=== PATIENT | female | born 1970 | race Caucasian/White ===

== ENCOUNTER 2017-01-30 09:10 | Emergency (ER) | payer OTHER ==
[~2017-01-30] VITALS: Ht 157.5 cm; Wt 65.9 kg
[~2017-01-30 09:10] MED LIST: ASPI-825 PO; GEMF600T3 PO; METF1000 PO
[2017-01-30] MEDS ORDERED: MECL-111 PO (09:23)
[2017-01-30 09:31] LABS: GLUCOSE,POINT OF CARE 314 MG/DL (70-110)
[2017-01-30 11:02] LABS: BASOPHILS # (AUTO) 0.04 K/uL (0.00-0.20); BASOPHILS % (AUTO) 0.4 % (0.0-2.0); EOSINOPHILS # (AUTO) 0.49 K/uL (0.00-0.70); EOSINOPHILS % (AUTO) 5.58 % (1.0-6.0); HEMATOCRIT 39.6 % (36-46); HEMOGLOBIN 13.1 g/dL (12.0-16.0); LYMPHOCYTES # (AUTO) 3.2 K/uL (1.0-4.8); LYMPHOCYTES % (AUTO) 36.7 % (22.0-44.0); MEAN CORPUSCULAR HEMOGLOBIN 28.8 pg (26.0-34.0); MEAN CORPUSCULAR HGB CONC 33.1 G/dL (31.0-37.0); MEAN CORPUSCULAR VOLUME 87 fL (80-100); MONOCYTES # (AUTO) 0.5 K/uL (0.1-1.0); MONOCYTES % (AUTO) 5.4 % (2.0-9.0); NEUTROPHILS # (AUTO) 4.5 K/uL (1.8-7.7); NEUTROPHILS % (AUTO) 51.9 % (40.0-70.0); PLATELET COUNT (AUTO) 228 K/uL (150-450); RED BLOOD CELL COUNT(AUTO) 4.55 MIL/uL (4.00-5.20); RED CELL DISTRIBUTION WIDTH 12.9 % (11.5-14.5); WHITE BLOOD COUNT (AUTO) 8.7 K/uL (4.5-11.0)
[2017-01-30 11:21] LABS: ALANINE AMINOTRANSFERASE 18 U/L (12-78); ALBUMIN 3.4 g/dL (3.4-5.0); ANION GAP 8 mmol/L (8-16); ASPARTATE AMINOTRANSFERASE 10 U/L (15-37); BILIRUBIN,TOTAL 0.3 mg/dL (0.1-1.0); CALCIUM, TOTAL 8.5 mg/dL (8.8-10.5); CARBON DIOXIDE 26 mmol/L (22-29); CHLORIDE 98 mmol/L (98-107); CREATININE 0.64 mg/dL (0.60-1.30); GLOMERULAR FILTR. RATE CALC > 60 mL/min (>60); POTASSIUM 4.4 mmol/L (3.5-5.1); SODIUM SERUM 132 mmol/L (136-145); TOTAL PROTEIN, SERUM 6.9 g/dL (6.4-8.2); UREA NITROGEN, BLOOD 9 mg/dL (7-18)
[2017-01-30] MEDS ORDERED: INSULIN REGULAR, HUMAN 100 UNITS/ML SQ ONE (12:00)
[2017-01-30] MEDS ORDERED: KETOROLAC TROMETHAMINE 30 MG/ML VIAL IVP ONE (12:00)
[2017-01-30] MEDS ORDERED: SODIUM CHLORIDE 0.9% 1,000 ML IV ONE (12:00)
[2017-01-30] MEDS ORDERED: MECLIZINE HCL 25 MG TABLET PO ONE (12:00)
[2017-01-30 14:08] LABS: APPEARANCE,URINE CLEAR (CLEAR); GLUCOSE, URINE (UA) >=1000 mg/dL (NEGATIVE); KETONES,URINE NEGATIVE (NEGATIVE); LEUKOCYTE ESTERASE ,URINE NEGATIVE (NEGATIVE); OCCULT BLOOD,URINE NEGATIVE (NEGATIVE); PROTEIN,URINE NEGATIVE (NEGATIVE)
[2017-01-30 14:09] LABS: ADD UA MICROSCOPIC YES
[2017-01-30 14:14] VITALS: BP 135/80
[2017-01-30 14:17] LABS: RBC,URINE None Seen /HPF (0-2); SQUAMOUS EPITHELIAL CELL,UR Few /LPF (None Seen); WBC,URINE 0-2 /HPF (0-5)
[2017-01-30 14:42] LABS: GLUCOSE COMMENT 1 Doctor Notified; GLUCOSE,POINT OF CARE 176 MG/DL (70-110)
== END 2017-01-30 14:53 | disposition home or self-care (01) ==
LOC: EMS 09:11
DX: R42 Dizziness and giddiness (principal); M54.41 Lumbago with sciatica, right side; M54.42 Lumbago with sciatica, left side; I10 Essential (primary) hypertension; E11.9 Type 2 diabetes mellitus without complications; E78.00 Pure hypercholesterolemia, unspecified; F17.210 Nicotine dependence, cigarettes, uncomplicated
CPT/HCPCS: 36415; 72100; 80053; 81001; 82962; 85025; 96361; 96372; 96374; 99285; J1815; J1885; J7030

== ENCOUNTER 2017-10-22 01:01 | Emergency (ER) | payer OTHER ==
[~2017-10-22] VITALS: Ht 157.5 cm; Wt 63.2 kg
[~2017-10-22 01:01] MED LIST changes: +MECL-111 PO
[2017-10-22] MEDS ORDERED: LORA10TA7 PO (01:23)
[2017-10-22] MEDS ORDERED: INSLAN SQ (01:23)
[2017-10-22] MEDS ORDERED: GLIP5 PO (01:23)
[2017-10-22] MEDS ORDERED: SIMV-261 PO (01:23)
[2017-10-22 01:28] LABS: GLUCOSE,POINT OF CARE 325 MG/DL (70-110)
[2017-10-22 02:14] VITALS: BP 129/76
== END 2017-10-22 02:32 | disposition home or self-care (01) ==
LOC: EMS 01:01
DX: S46.001A Unspecified injury of muscle(s) and tendon(s) of the rotator cuff of right shoulder, initial encounter (principal); M54.2 Cervicalgia; E11.9 Type 2 diabetes mellitus without complications; E78.00 Pure hypercholesterolemia, unspecified; I10 Essential (primary) hypertension; F17.210 Nicotine dependence, cigarettes, uncomplicated; Z76.0 Encounter for issue of repeat prescription; Z79.4 Long term (current) use of insulin; Z91.040 Latex allergy status; X58.XXXA Exposure to other specified factors, initial encounter; Y93.89 Activity, other specified; Y92.89 Other specified places as the place of occurrence of the external cause; Y99.8 Other external cause status
CPT/HCPCS: 99283

== ENCOUNTER 2018-10-25 17:27 | Emergency (ER) | payer OTHER ==
[~2018-10-25] VITALS: Ht 152.4 cm; Wt 59.5 kg
[~2018-10-25 17:27] MED LIST changes: -ASPI-825 PO; -GEMF600T3 PO; +GLIP5 PO; +INSLAN SQ; +LORA10TA7 PO; +SIMV-261 PO
[2018-10-25] MEDS ORDERED: SIMV-260 PO (17:41)
[2018-10-25] MEDS ORDERED: CYCL10 PO (17:41)
[2018-10-25] MEDS ORDERED: CETI10TA59 PO (17:41)
[2018-10-25] MEDS ORDERED: MIRT30 PO (17:41)
[2018-10-25] MEDS ORDERED: OMEP20 PO (17:41)
[2018-10-25 17:44] LABS: GLUCOSE,POINT OF CARE 294 MG/DL (70-110)
[2018-10-25 20:19] LABS: GLUCOSE,POINT OF CARE 179 MG/DL (70-110)
[2018-10-25 20:37] VITALS: BP 126/73
== END 2018-10-25 20:52 | disposition home or self-care (01) ==
LOC: EMS 17:30
DX: E11.65 Type 2 diabetes mellitus with hyperglycemia (principal); I10 Essential (primary) hypertension; E78.00 Pure hypercholesterolemia, unspecified; F17.210 Nicotine dependence, cigarettes, uncomplicated; Z91.040 Latex allergy status; Z79.84 Long term (current) use of oral hypoglycemic drugs; Z79.899 Other long term (current) drug therapy
CPT/HCPCS: 99406

== ENCOUNTER 2019-01-07 17:02 | Emergency (ER) | payer OTHER ==
[~2019-01-07] VITALS: Ht 157.5 cm; Wt 58.6 kg
[~2019-01-07 17:02] MED LIST changes: +CETI10TA59 PO; +CYCL10 PO; -LORA10TA7 PO; +MIRT30 PO; +OMEP20 PO; +SIMV-260 PO; -SIMV-261 PO
[2019-01-07 17:21] LABS: GLUCOSE,POINT OF CARE 243 MG/DL (70-110)
[2019-01-07] MEDS ORDERED: GLIP10 PO (17:21)
[2019-01-07] MEDS ORDERED: INSLAN SQ (17:21)
[2019-01-07] MEDS ORDERED: KETOROLAC TROMETHAMINE 30 MG/ML VIAL IM ONE (20:00)
[2019-01-07 21:30] VITALS: BP 128/75
== END 2019-01-07 21:32 | disposition home or self-care (01) ==
LOC: EMS 17:03
DX: J32.9 Chronic sinusitis, unspecified (principal); R51 Headache; E11.9 Type 2 diabetes mellitus without complications; E78.00 Pure hypercholesterolemia, unspecified; I10 Essential (primary) hypertension; F17.210 Nicotine dependence, cigarettes, uncomplicated; Z91.040 Latex allergy status; Z79.84 Long term (current) use of oral hypoglycemic drugs; Z79.4 Long term (current) use of insulin
CPT/HCPCS: 71045; 82962; 96372; 99283; J1885

== ENCOUNTER 2019-03-16 05:10 | Emergency (ER) | payer OTHER ==
[~2019-03-16] VITALS: Ht 157.5 cm; Wt 58.2 kg
[~2019-03-16 05:10] MED LIST changes: -CYCL10 PO; +GLIP10 PO; -GLIP5 PO
[2019-03-16 07:09] LABS: BASOPHILS % (AUTO) 0.7 % (0.0-2.0); EOSINOPHILS % (AUTO) 1.9 % (1.0-6.0); HEMATOCRIT 37.5 % (36-46); LYMPHOCYTES # (AUTO) 2.3 K/uL (1.0-4.8); LYMPHOCYTES % (AUTO) 23.4 % (22.0-44.0); MEAN CORPUSCULAR HEMOGLOBIN 28.7 pg (26.0-34.0); MEAN CORPUSCULAR HGB CONC 34.7 G/dL (31.0-37.0); MEAN CORPUSCULAR VOLUME 83 fL (80-100); MONOCYTES # (AUTO) 0.6 K/uL (0.1-1.0); MONOCYTES % (AUTO) 5.7 % (2.0-9.0); NEUTROPHILS # (AUTO) 6.8 K/uL (1.8-7.7); NEUTROPHILS % (AUTO) 68.3 % (40.0-70.0); PLATELET COUNT (AUTO) 258 K/uL (150-450); RED BLOOD CELL COUNT(AUTO) 4.53 MIL/uL (4.00-5.20); RED CELL DISTRIBUTION WIDTH 14.3 % (11.5-14.5)
[2019-03-16] MEDS ORDERED: MECLIZINE HCL 25 MG TABLET PO ONE (07:15)
[2019-03-16] MEDS ORDERED: SODIUM CHLORIDE 0.9% 2,000 ML IV ONE (07:15)
[2019-03-16] MEDS ORDERED: ACETAMINOPHEN 500 MG TABLET PO ONE (07:15)
[2019-03-16] MEDS ORDERED: INSULIN REGULAR, HUMAN 100 UNITS/ML IVP ONE (07:15)
[2019-03-16] MEDS ORDERED: ONDANSETRON HCL 4 MG/2 ML VIAL IVP ONE (07:15)
[2019-03-16 07:25] LABS: ANION GAP 8 mmol/L (8-16); CALCIUM, TOTAL 8.7 mg/dL (8.8-10.5); CARBON DIOXIDE 27 mmol/L (22-29); CHLORIDE 97 mmol/L (98-107); CREATININE 0.62 mg/dL (0.60-1.30); GLOMERULAR FILTR. RATE CALC > 60 mL/min (>60); GLUCOSE,RANDOM 319 mg/dL (70-110); POTASSIUM 3.6 mmol/L (3.5-5.1); SODIUM SERUM 132 mmol/L (136-145); UREA NITROGEN, BLOOD 8 mg/dL (7-18)
[2019-03-16 07:34] LABS: ALANINE AMINOTRANSFERASE 26 U/L (12-78); ALBUMIN 3.5 g/dL (3.4-5.0); ALKALINE PHOSPHATASE 86 U/L (46-116); ASPARTATE AMINOTRANSFERASE 16 U/L (15-37); BILIRUBIN,TOTAL 0.2 mg/dL (0.1-1.0); HCG,QUANTITATIVE 1 mIU/mL (0-6); LIPASE 178 U/L (73-393); TOTAL PROTEIN, SERUM 7.4 g/dL (6.4-8.2)
[2019-03-16 08:53] LABS: GLUCOSE,POINT OF CARE 263 MG/DL (70-110)
[2019-03-16 09:47] VITALS: BP 135/76
== END 2019-03-16 09:58 | disposition home or self-care (01) ==
LOC: EMS 05:13
DX: E11.65 Type 2 diabetes mellitus with hyperglycemia (principal); R42 Dizziness and giddiness; E11.9 Type 2 diabetes mellitus without complications; E78.00 Pure hypercholesterolemia, unspecified; I10 Essential (primary) hypertension; F17.210 Nicotine dependence, cigarettes, uncomplicated; Z79.899 Other long term (current) drug therapy; Z91.040 Latex allergy status; Z79.4 Long term (current) use of insulin
CPT/HCPCS: 36415; 80053; 82962; 83690; 84484; 84702; 85025; 93005; 96361; 96374; 96375; 99285; J1815; J2405; J7030

== ENCOUNTER 2020-10-02 17:43 | Emergency (ER) | payer OTHER ==
[~2020-10-02] VITALS: Ht 154.9 cm; Wt 56.8 kg
[~2020-10-02 17:43] MED LIST changes: +CETI-450 PO; -CETI10TA59 PO; -MECL-111 PO; +MECL-160 PO
[2020-10-02] MEDS ORDERED: MAGN200T4 PO (17:50)
[2020-10-02 18:53] LABS: BAND NEUTROPHILS % (MANUAL) 0 % (0-5)
[2020-10-02 18:54] LABS: HEMOGLOBIN 12.8 g/dL (12.0-16.0); MEAN CORPUSCULAR HEMOGLOBIN 29.2 pg (26.0-34.0); MEAN CORPUSCULAR HGB CONC 33.6 G/dL (31.0-37.0); MEAN CORPUSCULAR VOLUME 87 fL (80-100); PLATELET COUNT (AUTO) 241 K/uL (150-450); RED BLOOD CELL COUNT(AUTO) 4.37 MIL/uL (4.00-5.20); RED CELL DISTRIBUTION WIDTH 13.1 % (11.5-14.5)
[2020-10-02 19:04] LABS: ANION GAP 5 mmol/L (8-16); CALCIUM, TOTAL 9.3 mg/dL (8.8-10.5); CARBON DIOXIDE 30 mmol/L (22-29); CHLORIDE 99 mmol/L (98-107); CREATININE 0.75 mg/dL (0.60-1.30); GLOMERULAR FILTR. RATE CALC > 60 mL/min (>60); GLUCOSE,RANDOM 393 mg/dL (70-110); SODIUM SERUM 134 mmol/L (136-145); UREA NITROGEN, BLOOD 11 mg/dL (7-18)
[2020-10-02 19:08] LABS: EOSINOPHILS % (MANUAL) 4 % (1-6); LYMPHOCYTES % (MANUAL) 30 % (22-44); MONOCYTES % (MANUAL) 1 % (2-9); SEGMENTED NEUTROPHILS % 65 % (40-70)
[2020-10-02 19:10] LABS: ALANINE AMINOTRANSFERASE 43 U/L (12-78); ALBUMIN 3.5 g/dL (3.4-5.0); ALKALINE PHOSPHATASE 103 U/L (46-116); ASPARTATE AMINOTRANSFERASE 23 U/L (15-37); BILIRUBIN,TOTAL 0.4 mg/dL (0.1-1.0); TOTAL PROTEIN, SERUM 7.5 g/dL (6.4-8.2)
[2020-10-02 19:11] VITALS: BP 119/62
[2020-10-02] MEDS ORDERED: METF-960 PO (19:42)
[2020-10-02] MEDS ORDERED: VITA1CAP PO (19:42)
[2020-10-02] MEDS ORDERED: ATOR20TA65 PO (19:42)
[2020-10-02] MEDS ORDERED: MECL-226 PO (19:42)
[2020-10-02] MEDS ORDERED: DULA0.75 SQ (19:42)
[2020-10-02] MEDS ORDERED: SITA100 PO (19:42)
[2020-10-02] MEDS ORDERED: MAGNESIUM SULFATE 2 GM/WATER 50 ML IV ONE (19:45)
== END 2020-10-02 20:47 | disposition home or self-care (01) ==
LOC: EMS 17:43
DX: E83.42 Hypomagnesemia (principal); E11.9 Type 2 diabetes mellitus without complications; E78.00 Pure hypercholesterolemia, unspecified; I10 Essential (primary) hypertension; F17.210 Nicotine dependence, cigarettes, uncomplicated; Z79.4 Long term (current) use of insulin; Z91.040 Latex allergy status
CPT/HCPCS: 36415; 80053; 82962; 83735; 85007; 85027; 96365; 99284; J3475

== ENCOUNTER 2020-12-10 14:03 | Emergency (ER) | payer OTHER ==
[~2020-12-10] VITALS: Ht 157.5 cm; Wt 57.3 kg
[~2020-12-10 14:03] MED LIST changes: +ATOR20TA65 PO; +DULA0.75 SQ; +MAGN200T4 PO; -MECL-160 PO; +MECL-226 PO; +METF-960 PO; -METF1000 PO; -SIMV-260 PO; +SITA100 PO; +VITA1CAP PO
[2020-12-10 14:05] VITALS: BP 118/59
[2020-12-10 16:15] LABS: GLUCOMETER DEV NAME(LOC) ERT.5; GLUCOSE,POINT OF CARE 296 MG/DL (70-110)
[2020-12-10 16:36] LABS: APPEARANCE,URINE CLOUDY (CLEAR); GLUCOSE, URINE (UA) 500 mg/dL (NEGATIVE); KETONES,URINE TRACE mg/dL (NEGATIVE); LEUKOCYTE ESTERASE ,URINE LARGE (NEGATIVE); NITRATE,URINE NEGATIVE (NEGATIVE); OCCULT BLOOD,URINE MODERATE (NEGATIVE); PROTEIN,URINE POS 1+ (NEGATIVE); UROBILINOGEN,URINE 0.2 mg/dL (<=1.0)
[2020-12-10 16:39] LABS: BILIRUBIN,URINE PRELIM. POSITIVE (NEGATIVE)
[2020-12-10 17:19] LABS: BACTERIA,URINE Few /HPF (None Seen)
[2020-12-10 17:20] LABS: WBC,URINE 51-100 /HPF (0-5)
[2020-12-10 17:21] LABS: SQUAMOUS EPITHELIAL CELL,UR Few /LPF (None Seen)
[2020-12-10 17:25] LABS: CALCIUM, TOTAL 9.1 mg/dL (8.8-10.5); CREATININE 1.22 mg/dL (0.60-1.30)
[2020-12-10 17:26] LABS: MAGNESIUM 1.4 mg/dL (1.80-2.40)
== END 2020-12-10 17:44 | disposition home or self-care (01) ==
LOC: EMS 14:06
DX: E83.42 Hypomagnesemia (principal); N39.0 Urinary tract infection, site not specified; E11.9 Type 2 diabetes mellitus without complications; E78.00 Pure hypercholesterolemia, unspecified; I10 Essential (primary) hypertension; F17.210 Nicotine dependence, cigarettes, uncomplicated; Z90.89 Acquired absence of other organs; Z91.040 Latex allergy status; Z79.4 Long term (current) use of insulin
CPT/HCPCS: 80048; 81001; 81002; 82948; 82962; 83735; 87077; 87086; 87186; 93005; 99284

== ENCOUNTER 2020-12-19 13:07 | Emergency (ER) | payer OTHER ==
[2020-12-19] MEDS ORDERED: ACETAMINOPHEN 500 MG TABLET PO ONE (14:30)
[2020-12-19] MEDS ORDERED: IBUPROFEN 600 MG TABLET PO ONE (14:30)
== END 2020-12-19 16:34 | disposition home or self-care (01) ==
LOC: EMS 13:07
DX: S83.92XA Sprain of unspecified site of left knee, initial encounter (principal); E11.9 Type 2 diabetes mellitus without complications; E78.00 Pure hypercholesterolemia, unspecified; I10 Essential (primary) hypertension; F17.210 Nicotine dependence, cigarettes, uncomplicated; Z90.89 Acquired absence of other organs; Z91.040 Latex allergy status; Z79.84 Long term (current) use of oral hypoglycemic drugs; W19.XXXA Unspecified fall, initial encounter; Y93.89 Activity, other specified; Y92.89 Other specified places as the place of occurrence of the external cause; Y99.8 Other external cause status
CPT/HCPCS: 99283

== ENCOUNTER 2021-03-08 03:25 | Emergency (ER) | payer OTHER ==
[~2021-03-08] VITALS: Ht 154.9 cm; Wt 58.1 kg
[~2021-03-08 03:25] MED LIST changes: +METF-1211 PO; -METF-960 PO
[2021-03-08 03:42] LABS: GLUCOSE,POINT OF CARE 228 MG/DL (70-110)
[2021-03-08 04:21] LABS: BASOPHILS % (AUTO) 0.7 % (0.0-2.0); EOSINOPHILS % (AUTO) 6.7 % (1.0-6.0); HEMATOCRIT 35.1 % (36-46); HEMOGLOBIN 12.1 g/dL (12.0-16.0); LYMPHOCYTES # (AUTO) 4.4 K/uL (1.0-4.8); LYMPHOCYTES % (AUTO) 45.3 % (22.0-44.0); MEAN CORPUSCULAR HEMOGLOBIN 30.5 pg (26.0-34.0); MEAN CORPUSCULAR HGB CONC 34.3 G/dL (31.0-37.0); MEAN CORPUSCULAR VOLUME 89 fL (80-100); MONOCYTES # (AUTO) 0.7 K/uL (0.1-1.0); MONOCYTES % (AUTO) 7.6 % (2.0-9.0); NEUTROPHILS # (AUTO) 3.9 K/uL (1.8-7.7); NEUTROPHILS % (AUTO) 39.7 % (40.0-70.0); PLATELET COUNT (AUTO) 224 K/uL (150-450); RED BLOOD CELL COUNT(AUTO) 3.96 MIL/uL (4.00-5.20)
[2021-03-08 04:31] LABS: ANION GAP 6 mmol/L (8-16); CALCIUM, TOTAL 9.1 mg/dL (8.8-10.5); CARBON DIOXIDE 30 mmol/L (22-29); CHLORIDE 103 mmol/L (98-107); CREATININE 0.78 mg/dL (0.60-1.30); GLOMERULAR FILTR. RATE CALC > 60 mL/min (>60); GLUCOSE,RANDOM 171 mg/dL (70-110); SODIUM SERUM 139 mmol/L (136-145); UREA NITROGEN, BLOOD 27 mg/dL (7-18)
[2021-03-08 04:35] LABS: ALANINE AMINOTRANSFERASE 25 U/L (12-78); ALBUMIN 3.5 g/dL (3.4-5.0); ALKALINE PHOSPHATASE 93 U/L (46-116); ASPARTATE AMINOTRANSFERASE 14 U/L (15-37); BILIRUBIN,TOTAL 0.2 mg/dL (0.1-1.0); LIPASE 474 U/L (73-393)
[2021-03-08] MEDS ORDERED: MAGNESIUM SULFATE 2 GM/WATER 50 ML IV ONE (06:00)
[2021-03-08 10:20] VITALS: BP 110/62
== END 2021-03-08 11:25 | disposition home or self-care (01) ==
LOC: EMS 03:28
DX: E83.42 Hypomagnesemia (principal); R07.89 Other chest pain; I10 Essential (primary) hypertension; E78.00 Pure hypercholesterolemia, unspecified; E11.9 Type 2 diabetes mellitus without complications; F32.9 Major depressive disorder, single episode, unspecified; F41.9 Anxiety disorder, unspecified; F17.210 Nicotine dependence, cigarettes, uncomplicated; Z91.038 Other insect allergy status; Z79.84 Long term (current) use of oral hypoglycemic drugs; Z79.4 Long term (current) use of insulin; Z79.899 Other long term (current) drug therapy
CPT/HCPCS: 36415; 71045; 80053; 82962; 83690; 83735; 84484; 85025; 93005; 96365; 96366; 99285; J3475

== ENCOUNTER 2021-05-30 21:13 | Emergency (ER) | payer OTHER ==
[~2021-05-30] VITALS: Ht 154.9 cm; Wt 56.8 kg
[2021-05-30 21:38] LABS: BASOPHILS % (AUTO) 0.5 % (0.0-2.0); EOSINOPHILS % (AUTO) 5.9 % (1.0-6.0); HEMATOCRIT 36.6 % (36-46); HEMOGLOBIN 12.5 g/dL (12.0-16.0); LYMPHOCYTES # (AUTO) 3.4 K/uL (1.0-4.8); LYMPHOCYTES % (AUTO) 36.7 % (22.0-44.0); MEAN CORPUSCULAR HEMOGLOBIN 29.4 pg (26.0-34.0); MEAN CORPUSCULAR HGB CONC 34.2 G/dL (31.0-37.0); MEAN CORPUSCULAR VOLUME 86 fL (80-100); MONOCYTES # (AUTO) 0.6 K/uL (0.1-1.0); MONOCYTES % (AUTO) 6.5 % (2.0-9.0); NEUTROPHILS # (AUTO) 4.7 K/uL (1.8-7.7); NEUTROPHILS % (AUTO) 50.4 % (40.0-70.0); PLATELET COUNT (AUTO) 271 K/uL (150-450); RED BLOOD CELL COUNT(AUTO) 4.25 MIL/uL (4.00-5.20); RED CELL DISTRIBUTION WIDTH 13.1 % (11.5-14.5)
[2021-05-30 21:45] LABS: ANION GAP 6 mmol/L (8-16); CALCIUM, TOTAL 10.4 mg/dL (8.8-10.5); CARBON DIOXIDE 32 mmol/L (22-29); CHLORIDE 99 mmol/L (98-107); GLOMERULAR FILTR. RATE CALC > 60 mL/min (>60); GLUCOSE,RANDOM 187 mg/dL (70-110); POTASSIUM 3.9 mmol/L (3.5-5.1); SODIUM SERUM 137 mmol/L (136-145); UREA NITROGEN, BLOOD 31 mg/dL (7-18)
[2021-05-30 21:51] LABS: ALANINE AMINOTRANSFERASE 27 U/L (12-78); ALKALINE PHOSPHATASE 105 U/L (46-116); ASPARTATE AMINOTRANSFERASE 16 U/L (15-37); BILIRUBIN,TOTAL 0.4 mg/dL (0.1-1.0); TOTAL PROTEIN, SERUM 7.9 g/dL (6.4-8.2)
[2021-05-30 22:27] VITALS: BP 123/76
== END 2021-05-30 22:34 | disposition home or self-care (01) ==
LOC: EMS 21:14
DX: F41.9 Anxiety disorder, unspecified (principal); I10 Essential (primary) hypertension; E11.9 Type 2 diabetes mellitus without complications; E78.00 Pure hypercholesterolemia, unspecified; F32.9 Major depressive disorder, single episode, unspecified; F17.210 Nicotine dependence, cigarettes, uncomplicated; Z91.040 Latex allergy status; Z79.4 Long term (current) use of insulin; Z79.899 Other long term (current) drug therapy
CPT/HCPCS: 80053; 83735; 84484; 85025; 93005; 99284

== ENCOUNTER 2021-10-28 19:16 | Emergency (ER) | payer OTHER ==
[~2021-10-28] VITALS: Ht 154.9 cm; Wt 58.0 kg
[~2021-10-28 19:16] MED LIST changes: -GLIP10 PO; +GLIP10TA10 PO
[2021-10-28] MEDS ORDERED: ONDANSETRON HCL 4 MG TABLET PO ONE (20:15)
[2021-10-28] MEDS ORDERED: MECLIZINE HCL 25 MG TABLET PO ONE (20:15)
[2021-10-28] MEDS ORDERED: MECL-134 PO (20:46)
[2021-10-28] MEDS ORDERED: ONDA-104 PO (20:46)
[2021-10-28 21:21] VITALS: BP 134/80
== END 2021-10-28 21:23 | disposition home or self-care (01) ==
LOC: EMS 19:21
DX: R42 Dizziness and giddiness (principal); I95.9 Hypotension, unspecified; E11.9 Type 2 diabetes mellitus without complications; E78.00 Pure hypercholesterolemia, unspecified; F32.9 Major depressive disorder, single episode, unspecified; F41.9 Anxiety disorder, unspecified; F17.210 Nicotine dependence, cigarettes, uncomplicated; Z91.040 Latex allergy status; Z79.84 Long term (current) use of oral hypoglycemic drugs; Z79.899 Other long term (current) drug therapy
CPT/HCPCS: 99283; Q0162

== ENCOUNTER 2021-11-06 12:57 | Emergency (ER) | payer OTHER ==
[~2021-11-06] VITALS: Ht 154.9 cm; Wt 56.8 kg
[~2021-11-06 12:57] MED LIST changes: +MECL-134 PO; +ONDA-104 PO
[2021-11-06 13:26] VITALS: BP 93/57
[2021-11-06] MEDS ORDERED: INSU100I26 SQ (13:28)
[2021-11-06] MEDS ORDERED: MAGN400T53 PO (14:04)
[2021-11-06] MEDS ORDERED: CHOL25TA4 PO (14:04)
[2021-11-06] MEDS ORDERED: DULA1.5P SQ (14:04)
[2021-11-06] MEDS ORDERED: PROPARACAINE HCL 0.5% 15 ML OPHTHALMIC SOLUTION OU ONE (14:15)
[2021-11-06] MEDS ORDERED: FLUORESCEIN SODIUM 1 MG STRIP ONE (14:18)
[2021-11-06] MEDS ORDERED: FLUORESCEIN SODIUM 1 MG STRIP OU ONE (14:30)
== END 2021-11-06 15:03 | disposition home or self-care (01) ==
LOC: EMS 12:57
DX: H53.2 Diplopia (principal); R42 Dizziness and giddiness; I10 Essential (primary) hypertension; E11.9 Type 2 diabetes mellitus without complications; E78.00 Pure hypercholesterolemia, unspecified; F41.9 Anxiety disorder, unspecified; F32.9 Major depressive disorder, single episode, unspecified; F17.210 Nicotine dependence, cigarettes, uncomplicated; Z91.040 Latex allergy status; Z79.899 Other long term (current) drug therapy
CPT/HCPCS: 82962; 99283

== ENCOUNTER 2021-11-17 21:59 | Emergency (ER) | payer OTHER ==
[~2021-11-17] VITALS: Ht 154.9 cm; Wt 59.1 kg
[~2021-11-17 21:59] MED LIST changes: +CHOL25TA4 PO; -DULA0.75 SQ; +DULA1.5P SQ; -INSLAN SQ; +INSU100I26 SQ; -MAGN200T4 PO; +MAGN400T53 PO; -MECL-226 PO; -SITA100 PO; -VITA1CAP PO
[2021-11-17] MEDS ORDERED: ONDANSETRON HCL 4 MG/2 ML VIAL IVP ONE (22:30)
[2021-11-17] MEDS ORDERED: SODIUM CHLORIDE 0.9% 1,000 ML IV ONE (22:30)
[2021-11-17 22:33] LABS: BASOPHILS % (AUTO) 0.5 % (0.0-2.0); EOSINOPHILS % (AUTO) 7.9 % (1.0-6.0); HEMATOCRIT 34.9 % (36-46); HEMOGLOBIN 11.6 g/dL (12.0-16.0); LYMPHOCYTES # (AUTO) 3.2 K/uL (1.0-4.8); LYMPHOCYTES % (AUTO) 28.4 % (22.0-44.0); MEAN CORPUSCULAR HEMOGLOBIN 28.5 pg (26.0-34.0); MEAN CORPUSCULAR HGB CONC 33.4 G/dL (31.0-37.0); MEAN CORPUSCULAR VOLUME 85 fL (80-100); MONOCYTES # (AUTO) 0.7 K/uL (0.1-1.0); MONOCYTES % (AUTO) 5.9 % (2.0-9.0); NEUTROPHILS # (AUTO) 6.4 K/uL (1.8-7.7); NEUTROPHILS % (AUTO) 57.3 % (40.0-70.0); PLATELET COUNT (AUTO) 223 K/uL (150-450); RED BLOOD CELL COUNT(AUTO) 4.08 MIL/uL (4.00-5.20); RED CELL DISTRIBUTION WIDTH 13.4 % (11.5-14.5)
[2021-11-17 22:42] LABS: ANION GAP 16 mmol/L (8-16); CARBON DIOXIDE 28 mmol/L (22-29); CHLORIDE 98 mmol/L (98-107); CREATININE 0.77 mg/dL (0.60-1.30); GLUCOSE,RANDOM 242 mg/dL (70-110); POTASSIUM 4.1 mmol/L (3.5-5.1); SODIUM SERUM 142 mmol/L (136-145); UREA NITROGEN, BLOOD 19 mg/dL (7-18)
[2021-11-17 22:43] LABS: CALCIUM, TOTAL 9.4 mg/dL (8.8-10.5)
[2021-11-17 22:44] LABS: GLOMERULAR FILTR. RATE CALC > 60 mL/min (>60)
[2021-11-17 22:48] LABS: ALANINE AMINOTRANSFERASE 23 U/L (12-78); ALBUMIN 3.5 g/dL (3.4-5.0); ALKALINE PHOSPHATASE 105 U/L (46-116); ASPARTATE AMINOTRANSFERASE 19 U/L (15-37); BILIRUBIN,TOTAL 0.2 mg/dL (0.1-1.0); LIPASE 306 U/L (73-393); TOTAL PROTEIN, SERUM 7.3 g/dL (6.4-8.2)
[2021-11-17 23:18] LABS: APPEARANCE,URINE CLEAR (CLEAR); BILIRUBIN,URINE NEGATIVE (NEGATIVE); GLUCOSE, URINE (UA) >=1000 mg/dL (NEGATIVE); KETONES,URINE NEGATIVE (NEGATIVE); LEUKOCYTE ESTERASE ,URINE MODERATE (NEGATIVE); NITRATE,URINE NEGATIVE (NEGATIVE); OCCULT BLOOD,URINE NEGATIVE (NEGATIVE); PH,URINE 6.5 (5.0-8.0); PROTEIN,URINE TRACE mg/dL (NEGATIVE); SPECIFIC GRAVITIY, URINE 1.026 (1.003-1.030); UROBILINOGEN,URINE <=1.0 mg/dL (<=1.0)
[2021-11-17 23:28] LABS: RBC,URINE None Seen /HPF (0-2)
[2021-11-17 23:29] LABS: BACTERIA,URINE Few /HPF (None Seen)
[2021-11-17] MEDS ORDERED: MORPHINE SULFATE 4 MG/ML SYRINGE IVP ONE (23:30)
[2021-11-18] MEDS ORDERED: CEPH-558 PO (03:57)
[2021-11-18 04:00] VITALS: BP 130/107
[2021-11-18] MEDS ORDERED: LIDOCAINE 5% TRANSDERMAL PATCH TD ONE (04:00)
[2021-11-18] MEDS ORDERED: CEPHALEXIN MONOHYDRATE 500 MG CAPSULE PO ONE (04:00)
== END 2021-11-18 04:33 | disposition home or self-care (01) ==
LOC: EMS 22:01
DX: R10.12 Left upper quadrant pain (principal); N39.0 Urinary tract infection, site not specified; F41.9 Anxiety disorder, unspecified; I10 Essential (primary) hypertension; E11.9 Type 2 diabetes mellitus without complications; E78.00 Pure hypercholesterolemia, unspecified; F17.210 Nicotine dependence, cigarettes, uncomplicated; Z91.040 Latex allergy status; Z79.84 Long term (current) use of oral hypoglycemic drugs; Z79.899 Other long term (current) drug therapy
CPT/HCPCS: 99285; 96374; 96361; 96375; 80053; 81001; 83690; 84484; 85025; 36415; 87086; 93005; 74176; J2270; J2405; J7030

== ENCOUNTER 2021-11-29 19:56 | Emergency (ER) | payer OTHER ==
[~2021-11-29] VITALS: Ht 154.9 cm; Wt 59.0 kg
[~2021-11-29 19:56] MED LIST changes: +CEPH-558 PO
[2021-11-29] MEDS ORDERED: SODIUM CHLORIDE 0.9% 1,000 ML IV ONE (22:15)
[2021-11-29 22:24] LABS: BASOPHILS % (AUTO) 0.5 % (0.0-2.0); EOSINOPHILS % (AUTO) 7.5 % (1.0-6.0); HEMATOCRIT 34.7 % (36-46); LYMPHOCYTES # (AUTO) 2.7 K/uL (1.0-4.8); LYMPHOCYTES % (AUTO) 29.4 % (22.0-44.0); MEAN CORPUSCULAR HEMOGLOBIN 29.1 pg (26.0-34.0); MEAN CORPUSCULAR HGB CONC 34.5 G/dL (31.0-37.0); MEAN CORPUSCULAR VOLUME 84 fL (80-100); MONOCYTES # (AUTO) 0.5 K/uL (0.1-1.0); MONOCYTES % (AUTO) 5.3 % (2.0-9.0); NEUTROPHILS # (AUTO) 5.3 K/uL (1.8-7.7); NEUTROPHILS % (AUTO) 57.3 % (40.0-70.0); PLATELET COUNT (AUTO) 272 K/uL (150-450); RED BLOOD CELL COUNT(AUTO) 4.11 MIL/uL (4.00-5.20)
[2021-11-29 22:34] LABS: ANION GAP -2 mmol/L (8-16); CALCIUM, TOTAL 9.1 mg/dL (8.8-10.5); CARBON DIOXIDE 32 mmol/L (22-29); CHLORIDE 100 mmol/L (98-107); CREATININE 0.66 mg/dL (0.60-1.30); GLUCOSE,RANDOM 255 mg/dL (70-110); POTASSIUM 4.2 mmol/L (3.5-5.1); SODIUM SERUM 130 mmol/L (136-145); UREA NITROGEN, BLOOD 15 mg/dL (7-18)
[2021-11-29 22:36] LABS: PROTHROMBIN TIME 10.9 SEC (9.4-11.6)
[2021-11-29 22:41] LABS: ALANINE AMINOTRANSFERASE 111 U/L (12-78); ALBUMIN 3.8 g/dL (3.4-5.0); ALKALINE PHOSPHATASE 146 U/L (46-116); ASPARTATE AMINOTRANSFERASE 40 U/L (15-37); BILIRUBIN,TOTAL 0.2 mg/dL (0.1-1.0); CREATINE KINASE, TOTAL ONLY 42 U/L (26-192); TOTAL PROTEIN, SERUM 7.5 g/dL (6.4-8.2)
[2021-11-29 22:43] LABS: B-TYPE NATRIURETIC PEPTIDE 17 pg/mL (0-100); GLOMERULAR FILTR. RATE CALC > 60 mL/min (>60)
[2021-11-30 00:36] LABS: APPEARANCE,URINE HAZY (CLEAR); BILIRUBIN,URINE NEGATIVE (NEGATIVE); GLUCOSE, URINE (UA) >=1000 mg/dL (NEGATIVE); KETONES,URINE NEGATIVE (NEGATIVE); LEUKOCYTE ESTERASE ,URINE LARGE (NEGATIVE); NITRATE,URINE NEGATIVE (NEGATIVE); OCCULT BLOOD,URINE NEGATIVE (NEGATIVE); PH,URINE 7.5 (5.0-8.0); PROTEIN,URINE TRACE mg/dL (NEGATIVE); SPECIFIC GRAVITIY, URINE 1.015 (1.003-1.030); UROBILINOGEN,URINE <=1.0 mg/dL (<=1.0)
[2021-11-30 00:44] LABS: BACTERIA,URINE Rare /HPF (None Seen); RBC,URINE 0-2 /HPF (0-2)
[2021-11-30 00:45] LABS: SQUAMOUS EPITHELIAL CELL,UR Many /LPF (None Seen)
[2021-11-30] MEDS ORDERED: CEPH-558 PO (02:32)
[2021-11-30] MEDS ORDERED: NITR100C4 PO (02:36)
[2021-11-30 02:40] VITALS: BP 128/68
[2021-11-30] MEDS ORDERED: CEPHALEXIN MONOHYDRATE 500 MG CAPSULE PO ONE (02:45)
== END 2021-11-30 02:52 | disposition home or self-care (01) ==
LOC: EMS 19:58
DX: R42 Dizziness and giddiness (principal); N39.0 Urinary tract infection, site not specified; I95.9 Hypotension, unspecified; E78.00 Pure hypercholesterolemia, unspecified; E11.9 Type 2 diabetes mellitus without complications; F32.9 Major depressive disorder, single episode, unspecified; F41.9 Anxiety disorder, unspecified; F17.210 Nicotine dependence, cigarettes, uncomplicated; Z91.040 Latex allergy status; Z79.84 Long term (current) use of oral hypoglycemic drugs; Z79.899 Other long term (current) drug therapy
CPT/HCPCS: 70450; 71045; 80053; 81001; 82550; 83880; 84484; 85025; 85610; 85730; 87086; 93005; 96360; 99285; 36415-L1; 36415-TC; 87077

== ENCOUNTER 2022-01-14 15:17 | Emergency (ER) | payer OTHER ==
[~2022-01-14] VITALS: Ht 154.9 cm; Wt 58.2 kg
[~2022-01-14 15:17] MED LIST changes: +NITR100C4 PO
[2022-01-14] MEDS ORDERED: FERR325T23 PO (15:43)
[2022-01-14] MEDS ORDERED: HYDR-4808 PO (15:43)
[2022-01-14] MEDS ORDERED: ACETAMINOPHEN 325 MG TABLET PO ONE (19:00)
[2022-01-14 20:17] VITALS: BP 141/73
== END 2022-01-14 21:38 | disposition home or self-care (01) ==
LOC: EMS 15:23
DX: S30.0XXA Contusion of lower back and pelvis, initial encounter (principal); M79.641 Pain in right hand; F41.9 Anxiety disorder, unspecified; F32.A Depression, unspecified; E11.9 Type 2 diabetes mellitus without complications; E78.00 Pure hypercholesterolemia, unspecified; I10 Essential (primary) hypertension; F17.210 Nicotine dependence, cigarettes, uncomplicated; K80.20 Calculus of gallbladder without cholecystitis without obstruction; Z91.040 Latex allergy status; Z90.49 Acquired absence of other specified parts of digestive tract; Z98.51 Tubal ligation status; Z90.721 Acquired absence of ovaries, unilateral; W18.39XA Other fall on same level, initial encounter; Y93.89 Activity, other specified; Y92.89 Other specified places as the place of occurrence of the external cause; Y99.8 Other external cause status
CPT/HCPCS: 72170; 72220; 99284; 73130-TC; Z7502; Z7610

== ENCOUNTER 2022-09-12 16:22 | Emergency (ER) | payer OTHER ==
[~2022-09-12] VITALS: Ht 152.4 cm; Wt 57.9 kg
[~2022-09-12 16:22] MED LIST changes: -CEPH-558 PO; +FERR325T23 PO; +HYDR-4808 PO; -MIRT30 PO; -NITR100C4 PO; -OMEP20 PO; -ONDA-104 PO
[2022-09-12] MEDS ORDERED: DULA3PEN SQ (16:30)
[2022-09-12 16:43] LABS: COVID AG,FIA SOURCE NASAL SWAB
[2022-09-12 16:58] LABS: RAPID GROUP A STREP NEGATIVE (NEGATIVE)
[2022-09-12] MEDS ORDERED: ACETAMINOPHEN 500 MG TABLET PO ONE (17:00)
[2022-09-12 17:05] LABS: INFLUENZA TYPE B NEGATIVE FOR TYPE B (NEGATIVE)
[2022-09-12 17:22] LABS: INFLUENZA TYPE A POSITIVE FOR TYPE A (NEGATIVE)
[2022-09-12 18:46] VITALS: BP 112/60
[2022-09-12] MEDS ORDERED: OSEL75 PO (19:15)
[2022-09-12] MEDS ORDERED: AMOXICILLIN TRIHYDRATE 250 MG CAPSULE PO ONE (19:15)
== END 2022-09-12 19:27 | disposition home or self-care (01) ==
LOC: EMS 16:22
DX: J10.1 Influenza due to other identified influenza virus with other respiratory manifestations (principal); E11.9 Type 2 diabetes mellitus without complications; E78.00 Pure hypercholesterolemia, unspecified; F41.9 Anxiety disorder, unspecified; F32.A Depression, unspecified; I95.9 Hypotension, unspecified; K80.20 Calculus of gallbladder without cholecystitis without obstruction; F17.210 Nicotine dependence, cigarettes, uncomplicated; Z90.49 Acquired absence of other specified parts of digestive tract; Z98.51 Tubal ligation status; Z91.040 Latex allergy status; Z20.822 Contact with and (suspected) exposure to COVID-19
CPT/HCPCS: 71045; 82962; 87430; 87804; 99284

== ENCOUNTER 2022-09-20 17:49 | Emergency (ER) | payer OTHER ==
[~2022-09-20] VITALS: Ht 152.4 cm; Wt 57.3 kg
[~2022-09-20 17:49] MED LIST changes: -CETI-450 PO; -CHOL25TA4 PO; -DULA1.5P SQ; +DULA3PEN SQ; -FERR325T23 PO; -MECL-134 PO; +OSEL75 PO
[2022-09-20 19:42] VITALS: BP 121/66
[2022-09-20] MEDS ORDERED: PRED-729 PO (21:10)
[2022-09-20] MEDS ORDERED: PredniSONE 10 MG TABLET PO ONE (21:15)
== END 2022-09-20 21:23 | disposition home or self-care (01) ==
LOC: EMS 17:50
DX: R21 Rash and other nonspecific skin eruption (principal); F41.9 Anxiety disorder, unspecified; F32.A Depression, unspecified; E11.9 Type 2 diabetes mellitus without complications; E78.00 Pure hypercholesterolemia, unspecified; I95.9 Hypotension, unspecified; F17.210 Nicotine dependence, cigarettes, uncomplicated; Z90.49 Acquired absence of other specified parts of digestive tract; Z98.51 Tubal ligation status; Z98.890 Other specified postprocedural states; Z91.040 Latex allergy status
CPT/HCPCS: 99283; J7512

== ENCOUNTER → 2023-09-05 | Emergency (ER) | payer OTHER ==
[~2023-09-05] VITALS: Ht 154.9 cm; Wt 56.8 kg
[~2023-09-05] MED LIST changes: +ACET-2080 PO; +METH-659 PO; +PRED-729 PO
[2023-09-05 12:29] VITALS: BP 153/77; PULSE 93; RESP 14; TEMP 97.3
[2023-09-05 12:45] LABS: GLUCOMETER DEV NAME(LOC) ER.7; GLUCOSE,POINT OF CARE 230 MG/DL (70-110)
== END | disposition still patient (30) ==
LOC: EMS 12:16
DX: M54.2 Cervicalgia (principal); M54.50 Low back pain, unspecified; E11.65 Type 2 diabetes mellitus with hyperglycemia; E78.00 Pure hypercholesterolemia, unspecified; I95.9 Hypotension, unspecified; F41.9 Anxiety disorder, unspecified; F32.A Depression, unspecified; F17.210 Nicotine dependence, cigarettes, uncomplicated; Z90.49 Acquired absence of other specified parts of digestive tract; Z98.51 Tubal ligation status; Z91.040 Latex allergy status; V89.2XXA Person injured in unspecified motor-vehicle accident, traffic, initial encounter; Y93.89 Activity, other specified; Y92.89 Other specified places as the place of occurrence of the external cause; Y99.8 Other external cause status
CPT/HCPCS: 72040; 72100; 82962; 99284

== ENCOUNTER 2023-10-31 14:38 | Emergency (ER) | payer OTHER ==
[~2023-10-31] VITALS: Ht 152.4 cm; Wt 56.8 kg
[~2023-10-31 14:38] MED LIST changes: -OSEL75 PO; +OSEL75CA45 PO
[2023-10-31 14:46] VITALS: TEMP 98.3
[2023-10-31 15:19] LABS: BASOPHILS % (AUTO) 0.5 % (0.0-2.0); HEMATOCRIT 35.5 % (36-46); HEMOGLOBIN 11.9 g/dL (12.0-16.0); LYMPHOCYTES # (AUTO) 2.1 K/uL (1.0-4.8); LYMPHOCYTES % (AUTO) 27.1 % (22.0-44.0); MEAN CORPUSCULAR HEMOGLOBIN 30.1 pg (26.0-34.0); MEAN CORPUSCULAR HGB CONC 33.5 G/dL (31.0-37.0); MEAN CORPUSCULAR VOLUME 90 fL (80-100); MONOCYTES # (AUTO) 0.4 K/uL (0.1-1.0); MONOCYTES % (AUTO) 5.3 % (2.0-9.0); NEUTROPHILS # (AUTO) 4.7 K/uL (1.8-7.7); NEUTROPHILS % (AUTO) 61.1 % (40.0-70.0); PLATELET COUNT (AUTO) 300 K/uL (150-450); RED BLOOD CELL COUNT(AUTO) 3.95 MIL/uL (4.00-5.20); RED CELL DISTRIBUTION WIDTH 13.6 % (11.5-14.5); WHITE BLOOD COUNT (AUTO) 7.6 K/uL (4.5-11.0)
[2023-10-31 15:30] LABS: ANION GAP 8 mmol/L (8-16); CALCIUM, TOTAL 9.2 mg/dL (8.8-10.5); CARBON DIOXIDE 27 mmol/L (22-29); CHLORIDE 97 mmol/L (98-107); CREATININE 0.89 mg/dL (0.60-1.30); GLOMERULAR FILTR. RATE CALC > 60 mL/min (>60); POTASSIUM 4.7 mmol/L (3.5-5.1); SODIUM SERUM 132 mmol/L (136-145); UREA NITROGEN, BLOOD 21 mg/dL (7-18)
[2023-10-31 15:37] LABS: GLUCOSE,RANDOM 406 mg/dL (70-110)
[2023-10-31 16:26] VITALS: BP 125/70; PULSE 71; RESP 20
[2023-10-31] MEDS: INSULIN REGULAR, HUMAN 100 UNITS/ML SQ ONE (16:43)
== END 2023-10-31 17:14 | disposition home or self-care (01) ==
LOC: EMS 14:39
DX: E11.65 Type 2 diabetes mellitus with hyperglycemia (principal); F41.9 Anxiety disorder, unspecified; F32.A Depression, unspecified; E78.00 Pure hypercholesterolemia, unspecified; I10 Essential (primary) hypertension; F17.210 Nicotine dependence, cigarettes, uncomplicated; Z90.49 Acquired absence of other specified parts of digestive tract; Z98.51 Tubal ligation status; Z98.890 Other specified postprocedural states; Z91.040 Latex allergy status
CPT/HCPCS: 99283; 80048; 82962; 83735; 85025; 36415; 96372; J1815

== ENCOUNTER 2024-01-25 11:28 | Emergency (ER) | payer OTHER ==
[~2024-01-25] VITALS: Ht 152.4 cm; Wt 65.5 kg
[~2024-01-25 11:28] MED LIST changes: -GLIP10TA10 PO; +GLIP10TA17 PO
[2024-01-25 11:37] VITALS: BP 154/78; PULSE 93; RESP 16; TEMP 98; O2SAT 98
[2024-01-25] MEDS ORDERED: PROP10TA72 PO (11:41)
[2024-01-25] MEDS ORDERED: METF-81 PO (11:41)
[2024-01-25] MEDS ORDERED: TIRZ2.5P SQ (11:41)
[2024-01-25] MEDS ORDERED: GLIP10TA16 PO (11:41)
== END 2024-01-25 15:59 | disposition home or self-care (01) ==
LOC: EMS 11:28
DX: S90.112A Contusion of left great toe without damage to nail, initial encounter (principal); S90.121A Contusion of right lesser toe(s) without damage to nail, initial encounter; E11.42 Type 2 diabetes mellitus with diabetic polyneuropathy; E78.00 Pure hypercholesterolemia, unspecified; F41.9 Anxiety disorder, unspecified; F32.A Depression, unspecified; F17.210 Nicotine dependence, cigarettes, uncomplicated; Z90.49 Acquired absence of other specified parts of digestive tract; Z90.79 Acquired absence of other genital organ(s); Z91.040 Latex allergy status; Z98.890 Other specified postprocedural states; W19.XXXA Unspecified fall, initial encounter; Y93.89 Activity, other specified; Y92.89 Other specified places as the place of occurrence of the external cause; Y99.8 Other external cause status
CPT/HCPCS: 82962; 99283

== ENCOUNTER 2024-04-03 19:33 | Emergency (ER) | payer OTHER ==
[~2024-04-03] VITALS: Ht 152.4 cm; Wt 56.8 kg
[~2024-04-03 19:33] MED LIST changes: -ACET-2080 PO; -ATOR20TA65 PO; -DULA3PEN SQ; +GLIP10TA16 PO; -GLIP10TA17 PO; -HYDR-4808 PO; -INSU100I26 SQ; -MAGN400T53 PO; -METF-1211 PO; +METF-81 PO; -METH-659 PO; -OSEL75CA45 PO; -PRED-729 PO; +PROP10TA72 PO; +TIRZ2.5P SQ
[2024-04-03 19:46] VITALS: TEMP 98.2
[2024-04-03] MEDS: SODIUM CHLORIDE 0.9% 1,000 ML IV ONE (20:11)
[2024-04-03 20:15] LABS: BASOPHILS % (AUTO) 0.7 % (0.0-2.0); HEMATOCRIT 35.5 % (36-46); HEMOGLOBIN 11.7 g/dL (12.0-16.0); LYMPHOCYTES # (AUTO) 2.9 K/uL (1.0-4.8); LYMPHOCYTES % (AUTO) 35.3 % (22.0-44.0); MEAN CORPUSCULAR HEMOGLOBIN 29.3 pg (26.0-34.0); MEAN CORPUSCULAR HGB CONC 32.9 G/dL (31.0-37.0); MEAN CORPUSCULAR VOLUME 89 fL (80-100); MONOCYTES # (AUTO) 0.5 K/uL (0.1-1.0); MONOCYTES % (AUTO) 6.1 % (2.0-9.0); NEUTROPHILS # (AUTO) 4.5 K/uL (1.8-7.7); NEUTROPHILS % (AUTO) 53.9 % (40.0-70.0); PLATELET COUNT (AUTO) 247 K/uL (150-450); RED BLOOD CELL COUNT(AUTO) 3.98 MIL/uL (4.00-5.20); RED CELL DISTRIBUTION WIDTH 13.9 % (11.5-14.5); WHITE BLOOD COUNT (AUTO) 8.3 K/uL (4.5-11.0)
[2024-04-03 20:26] LABS: ACETONE,BLOOD NEGATIVE (NEGATIVE)
[2024-04-03 20:27] LABS: ANION GAP 8 mmol/L (8-16); CALCIUM, TOTAL 8.7 mg/dL (8.8-10.5); CARBON DIOXIDE 27 mmol/L (22-29); CHLORIDE 95 mmol/L (98-107); CREATININE 0.75 mg/dL (0.60-1.30); GLOMERULAR FILTR. RATE CALC > 60 mL/min (>60); POTASSIUM 3.9 mmol/L (3.5-5.1); SODIUM SERUM 130 mmol/L (136-145); UREA NITROGEN, BLOOD 14 mg/dL (7-18)
[2024-04-03 20:30] LABS: GLUCOSE,RANDOM 490 mg/dL (70-110)
[2024-04-03] MEDS: MAGNESIUM SULFATE 2 GM/WATER 50 ML IV ONE (21:10)
[2024-04-03 21:19] VITALS: BP 144/80; PULSE 75; RESP 18; O2SAT 100
[2024-04-03 22:21] LABS: GLUCOMETER DEV NAME(LOC) ER.7; GLUCOSE,POINT OF CARE 348 MG/DL (70-110)
== END 2024-04-03 22:44 | disposition home or self-care (01) ==
LOC: EMS 19:33
DX: E83.42 Hypomagnesemia (principal); E11.65 Type 2 diabetes mellitus with hyperglycemia; R25.2 Cramp and spasm; F41.9 Anxiety disorder, unspecified; F32.A Depression, unspecified; E78.00 Pure hypercholesterolemia, unspecified; F17.210 Nicotine dependence, cigarettes, uncomplicated; Z79.84 Long term (current) use of oral hypoglycemic drugs; Z79.85 Long-term (current) use of injectable non-insulin antidiabetic drugs; Z90.49 Acquired absence of other specified parts of digestive tract; Z90.79 Acquired absence of other genital organ(s)
CPT/HCPCS: 99284; 96365; 96361; 80048; 82009; 82962; 83735; 85025; 36415; 82948; J7030; J3475

== ENCOUNTER 2024-06-26 21:22 | Emergency (ER) | payer OTHER ==
[~2024-06-26] VITALS: Ht 157.5 cm; Wt 54.5 kg
[2024-06-26 21:55] VITALS: BP 120/73; PULSE 90; RESP 20; TEMP 98.5; O2SAT 99
[2024-06-26 22:15] LABS: GLUCOMETER DEV NAME(LOC) ERT.6; GLUCOSE,POINT OF CARE 348 MG/DL (70-110)
[2024-06-26 22:17] LABS: COVID AG,FIA SOURCE NASAL SWAB
[2024-06-26 22:27] LABS: SARS-COV2 (COVID) ANTIGEN,FIA Negative (Negative)
[2024-06-26 22:42] LABS: INFLUENZA TYPE A NEGATIVE FOR TYPE A (NEGATIVE); INFLUENZA TYPE B NEGATIVE FOR TYPE B (NEGATIVE)
[2024-06-27 01:17] LABS: BASOPHILS % (AUTO) 0.5 % (0.0-2.0); EOSINOPHILS % (AUTO) 3.8 % (1.0-6.0); HEMATOCRIT 38.2 % (36-46); LYMPHOCYTES # (AUTO) 2.5 K/uL (1.0-4.8); LYMPHOCYTES % (AUTO) 25.8 % (22.0-44.0); MEAN CORPUSCULAR HEMOGLOBIN 29.6 pg (26.0-34.0); MEAN CORPUSCULAR HGB CONC 33.9 G/dL (31.0-37.0); MEAN CORPUSCULAR VOLUME 87 fL (80-100); MONOCYTES # (AUTO) 0.6 K/uL (0.1-1.0); NEUTROPHILS # (AUTO) 6.1 K/uL (1.8-7.7); NEUTROPHILS % (AUTO) 63.9 % (40.0-70.0); PLATELET COUNT (AUTO) 264 K/uL (150-450); RED BLOOD CELL COUNT(AUTO) 4.38 MIL/uL (4.00-5.20); RED CELL DISTRIBUTION WIDTH 13.7 % (11.5-14.5); WHITE BLOOD COUNT (AUTO) 9.5 K/uL (4.5-11.0)
[2024-06-27 01:26] LABS: ANION GAP 8 mmol/L (8-16); CALCIUM, TOTAL 9.5 mg/dL (8.8-10.5); CARBON DIOXIDE 29 mmol/L (22-29); CHLORIDE 98 mmol/L (98-107); CREATININE 0.54 mg/dL (0.60-1.30); GLOMERULAR FILTR. RATE CALC > 60 mL/min (>60); GLUCOSE,RANDOM 305 mg/dL (70-110); POTASSIUM 3.5 mmol/L (3.5-5.1); SODIUM SERUM 135 mmol/L (136-145); UREA NITROGEN, BLOOD 14 mg/dL (7-18)
[2024-06-27 01:35] LABS: LIPASE 90 U/L (16-77); TROPONIN I-HIGH SENSITIVITY 5 ng/L (<51)
[2024-06-27] MEDS ORDERED: ONDA-104 PO (01:43)
[2024-06-27] MEDS: ONDANSETRON 4 MG TABLET PO ONE (01:58)
== END 2024-06-27 02:13 | disposition home or self-care (01) ==
LOC: EMS 21:23
DX: K52.9 Noninfective gastroenteritis and colitis, unspecified (principal); F41.9 Anxiety disorder, unspecified; F32.A Depression, unspecified; E11.9 Type 2 diabetes mellitus without complications; E78.00 Pure hypercholesterolemia, unspecified; F17.210 Nicotine dependence, cigarettes, uncomplicated; Z79.84 Long term (current) use of oral hypoglycemic drugs; Z79.85 Long-term (current) use of injectable non-insulin antidiabetic drugs; Z79.899 Other long term (current) drug therapy; Z90.49 Acquired absence of other specified parts of digestive tract; Z90.79 Acquired absence of other genital organ(s); Z20.822 Contact with and (suspected) exposure to COVID-19
CPT/HCPCS: 99284; 87426; 80048; 82962; 83690; 84484; 85025; 87804; 36415; 93005; 76705; Q0162